=== PATIENT | female | born 1960 ===

== ENCOUNTER → 2018-02-04 | Outpatient (CLI) | payer OTHER ==
[~2018-02-04] MED LIST: CLONAZEPAM2 MG; CONZIP100 MG; LUVOX CR100 MG; NEURONTIN300 MG; PREDNISONE20 MG; SYNTHROID100 MCG; ZANTAC150 M3
== END | disposition home or self-care (01) ==
LOC: RAD 09:50
DX: J45.998 Other asthma (principal)

== ENCOUNTER 2018-03-06 08:54 | Outpatient (CLI) | payer OTHER | END 2018-03-06 15:59 | disposition home or self-care (01) | LOC: TOM 08:54 | DX: N20.0 Calculus of kidney (principal); K57.92 Diverticulitis of intestine, part unspecified, without perforation or abscess without bleeding ==

== ENCOUNTER 2018-04-21 20:43 | Emergency (ER) | payer OTHER ==
[~2018-04-21] VITALS: Ht 162.6 cm; Wt 73.5 kg
== END 2018-04-21 23:43 | disposition home or self-care (01) ==
LOC: ER 20:43
DX: M60.88 Other myositis, other site (principal); M60.812 Other myositis, left shoulder; M60.811 Other myositis, right shoulder; M54.2 Cervicalgia; M79.1 Myalgia

== ENCOUNTER 2018-06-01 08:57 | Emergency (ER) | payer OTHER ==
[~2018-06-01] VITALS: Ht 162.6 cm; Wt 72.6 kg
[2018-06-01] MEDS ORDERED: SYNTHROID137 MCG (09:14)
[2018-06-01] MEDS ORDERED: TIZANIDINE HCL4 M1 (09:15)
[2018-06-01] MEDS ORDERED: VOLTAREN-XR100 MG (09:16)
== END 2018-06-01 13:55 | disposition home or self-care (01) ==
LOC: ER 08:57
DX: G89.29 Other chronic pain (principal); M25.512 Pain in left shoulder; M25.511 Pain in right shoulder; R07.89 Other chest pain; M54.89 Other dorsalgia

== ENCOUNTER 2018-07-11 19:43 | Emergency (ER) | payer OTHER ==
[~2018-07-11] VITALS: Ht 162.6 cm; Wt 72.6 kg
[~2018-07-11 19:43] MED LIST changes: +SYNTHROID137 MCG; +TIZANIDINE HCL4 M1; +VOLTAREN-XR100 MG
== END 2018-07-11 22:56 | disposition home or self-care (01) ==
LOC: ER 19:43
DX: M79.7 Fibromyalgia (principal); M54.89 Other dorsalgia

== ENCOUNTER 2018-07-23 07:33 | Outpatient (CLI) | payer OTHER | END 2018-07-23 15:21 | disposition home or self-care (01) | LOC: MRI 07:33 | DX: M48.07 Spinal stenosis, lumbosacral region (principal); M50.30 Other cervical disc degeneration, unspecified cervical region | CPT/HCPCS: 72141 ==